=== PATIENT | female | born 1955 | race Two or more races ===

== ENCOUNTER 2024-04-27 14:23 | Emergency (ER) | payer SELFPAY ==
[~2024-04-27] VITALS: Ht 162.6 cm; Wt 69.1 kg
[2024-04-27 14:29] VITALS: BP 138/78; PULSE 66; RESP 18; TEMP 98.4; O2SAT 99
== END 2024-04-27 17:11 | disposition left against medical advice (07) ==
LOC: EMS 14:23
DX: R51.9 Headache, unspecified (principal); Z53.21 Procedure and treatment not carried out due to patient leaving prior to being seen by health care provider

== ENCOUNTER 2024-05-08 10:05 | Emergency (ER) | payer OTHER ==
[~2024-05-08] VITALS: Ht 157.5 cm; Wt 59.1 kg
[2024-05-08 10:26] VITALS: BP 142/77; PULSE 65; RESP 18; TEMP 99.2; O2SAT 98
[2024-05-08 11:38] LABS: COVID AG,FIA SOURCE NASAL SWAB
[2024-05-08 12:19] LABS: SARS-COV2 (COVID) ANTIGEN,FIA Negative (Negative)
[2024-05-08 12:20] LABS: INFLUENZA TYPE B NEGATIVE FOR TYPE B (NEGATIVE)
[2024-05-08 12:38] LABS: INFLUENZA TYPE A POSITIVE FOR TYPE A (NEGATIVE)
[2024-05-08 12:39] LABS: RAPID GROUP A STREP NEGATIVE (NEGATIVE)
== END 2024-05-08 12:46 | disposition left against medical advice (07) ==
LOC: EMS 10:17
DX: J02.9 Acute pharyngitis, unspecified (principal); Z20.822 Contact with and (suspected) exposure to COVID-19; Z53.21 Procedure and treatment not carried out due to patient leaving prior to being seen by health care provider
CPT/HCPCS: 87430; 87804